=== PATIENT | female | born 1980 | race Caucasian/White ===

== ENCOUNTER 2016-06-21 13:00 | Emergency (ER) | payer OTHER ==
[2016-06-21 15:52] LABS: HEMOGLOBIN 13.7 gm/dl (12.3-15.3); RED BLOOD COUNT 4.52 M/UL (4.00-5.10); WHITE BLOOD COUNT 9.6 K/UL (4.5-11.0)
[2016-06-21 16:20] LABS: BUN/CREATININE RATIO 20 (0-10)
== END 2016-06-21 21:06 | disposition home or self-care (01) ==
LOC: ER1 13:00
PROVIDERS: Emergency Medicine
DX: R07.9 Chest pain, unspecified (principal); R19.7 Diarrhea, unspecified; E11.9 Type 2 diabetes mellitus without complications; Z88.5 Allergy status to narcotic agent
CPT/HCPCS: 36415; 71020; 80053; 81001; 82550; 82553; 83690; 83874; 84484; 84703; 85025; 87086; 93005; 96361; 96374; 96376; 99284; J1885; J7030; J7050; Q9963

== ENCOUNTER 2020-03-17 09:25 | Emergency (ER) | payer BC, OTHER ==
[~2020-03-17 09:25] MED LIST: ADVIL LIQUI-GE200 MG PO; CLARITIN10 M2 PO; IBUPROFEN600 MG PO; MUCINEX600 MG PO; NORCO 5-325 TA1 EACH PO; SINGULAIR10 MG PO; TESSALON PERLE100 MG PO; TYLENOL PO; VENTOLIN HFA 66.7 GM INH; VIBRAMYCIN100 MG PO
[2020-03-17 09:53] LABS: HEMOGLOBIN 12.6 gm/dl (12.3-15.3); RED BLOOD COUNT 4.4 M/UL (4.00-5.10); WHITE BLOOD COUNT 7.5 K/UL (4.5-11.0)
[2020-03-17 10:19] LABS: BUN/CREATININE RATIO 10 (0-10)
[2020-03-17] MEDS ORDERED: MOBIC15 MG PO (13:24)
[2020-03-17] MEDS ORDERED: VISTARIL50 MG PO (13:24)
== END 2020-03-17 13:34 | disposition home or self-care (01) ==
LOC: ER1 09:25
PROVIDERS: Emergency Medicine
DX: R07.89 Other chest pain (principal); M54.2 Cervicalgia; R05 Cough; R06.02 Shortness of breath; M54.6 Pain in thoracic spine; E11.9 Type 2 diabetes mellitus without complications; J44.9 Chronic obstructive pulmonary disease, unspecified; F17.200 Nicotine dependence, unspecified, uncomplicated; Z86.73 Personal history of transient ischemic attack (TIA), and cerebral infarction without residual deficits; Z88.5 Allergy status to narcotic agent; Z79.899 Other long term (current) drug therapy; Z20.822 Contact with and (suspected) exposure to COVID-19
CPT/HCPCS: 71046; 80053; 81001; 82550; 82553; 83874; 84484; 85025; 93005; 96374; 99285; J1885; U0002

== ENCOUNTER → 2020-11-26 | Outpatient (CLI) | payer OTHER ==
[~2020-11-26] MED LIST changes: +MOBIC15 MG PO; +VISTARIL50 MG PO
== END ==
LOC: KOH-I 09:29
DX: M25.561 Pain in right knee (principal); M25.562 Pain in left knee
CPT/HCPCS: 73562

== ENCOUNTER → 2021-01-05 | Outpatient (CLI) | payer OTHER ==
[2021-01-05 16:10] LABS: BUN/CREATININE RATIO 14 (0-10)
[2021-01-05 16:14] LABS: HEMOGLOBIN 12.5 gm/dl (12.3-15.3); RED BLOOD COUNT 4.71 M/UL (4.00-5.10); WHITE BLOOD COUNT 9.7 K/UL (4.5-11.0)
== END ==
LOC: LAB 15:16
PROVIDERS: Physician Assistant
DX: E11.9 Type 2 diabetes mellitus without complications (principal); R42 Dizziness and giddiness
CPT/HCPCS: 80053; 80061; 83036; 85025